=== PATIENT | female | born 1930 | race Caucasian/White ===

== ENCOUNTER → 2017-01-10 | Outpatient (CLI) | payer MEDICARE, OTHER ==
[~2017-01-10] MED LIST: ANTIVERT-DPS25 MG PO; ASPIR 8181 MG PO; CALCIUM WITH VIT D PO; CRANBERRY200 MG PO; FAMOTIDINE20 MG PO; IBANDRONATE SO150 MG PO; INDERAL LA60 MG PO; IRON325 MG PO; METAMUCIL PACK3.4 GM PO; MULTIVITAMINS1 EAC1 PO; PRAVACHOL20 MG PO; TYLENOL325 MG PO
== END | disposition home or self-care (01) ==
LOC: RAD.S 08:30
DX: M54.5 Low back pain (principal); M51.37 Other intervertebral disc degeneration, lumbosacral region; M43.16 Spondylolisthesis, lumbar region

== ENCOUNTER → 2017-03-24 | Outpatient (CLI) | payer MEDICARE, OTHER | END | disposition home or self-care (01) | LOC: RAD.S 14:06 | DX: M79.89 Other specified soft tissue disorders (principal); M79.662 Pain in left lower leg ==